=== PATIENT | female | born 1950 | race Two or more races ===

== ENCOUNTER 2016-06-06 22:29 | Emergency (ER) | payer OTHER ==
[~2016-06-06 22:29] MED LIST: ANXIETY MED; LOTENSIN20 MG PO
== END 2016-06-06 22:46 | disposition home or self-care (01) ==
LOC: SED 22:29
DX: R04.0 Epistaxis (principal); I10 Essential (primary) hypertension; F17.200 Nicotine dependence, unspecified, uncomplicated
CPT/HCPCS: 99283